=== PATIENT | female | born 1985 | race African-American/Black ===

== ENCOUNTER 2017-07-15 18:19 | Emergency (ER) | payer MEDICAID, OTHER ==
[~2017-07-15] VITALS: Ht 167.6 cm; Wt 68.0 kg
[~2017-07-15 18:19] MED LIST: TYLENOL
[2017-07-15 18:32] VITALS: BP 132/85
== END 2017-07-15 22:03 | disposition left against medical advice (07) ==
LOC: ER 18:19
DX: R10.9 Unspecified abdominal pain (principal); Z53.21 Procedure and treatment not carried out due to patient leaving prior to being seen by health care provider

== ENCOUNTER 2017-07-16 20:45 | Emergency (ER) | payer MEDICAID ==
[~2017-07-16] VITALS: Ht 167.6 cm; Wt 68.0 kg
[2017-07-16] MEDS ORDERED: KETOROLAC 30MG/ML VIAL IM ONE (23:15)
[2017-07-17 00:43] LABS: CLARITY URINE CLEAR (CLEAR); COLOR URINE YELLOW (YELLOW); GLUCOSE URINE NEGATIVE (NEGATIVE); KETONES URINE NEGATIVE (NEGATIVE); LEUKOCYTE ESTERASE URINE 3+ (NEGATIVE); NITRITE URINE NEGATIVE (NEGATIVE); OCCULT BLOOD URINE NEGATIVE (NEGATIVE); PH URINE 5.5 (4.5-8.0); PROTEIN URINE NEGATIVE (NEGATIVE); SPECIFIC GRAVITY URINE 1.016 (1.005-1.030); UROBILINOGEN URINE 0.2 E.U./dL (0.2-1.0)
[2017-07-17 01:05] VITALS: BP 122/83
== END 2017-07-17 01:16 | disposition home or self-care (01) ==
LOC: ER 20:45
DX: N39.0 Urinary tract infection, site not specified (principal)
CPT/HCPCS: 81001; 81025; 96372; 99283; J1885